=== PATIENT | male | born 1970 | race American Indian/Alaskan Native ===

== ENCOUNTER 2020-06-04 20:49 | Emergency (ER) | payer OTHER ==
[2020-06-04 21:00] VITALS: BP 136/86
--- NOTE | 2020-06-04 21:00 | Event Note ---
ED Screening Note Date of service: 06/04/20 Time: 20:59 ED Screening Note: c/o right wrist pain denies injury hx of gout This initial assessment/diagnostic orders/clinical plan/treatment(s) is/are subject to change based on patients health status, clinical progression and re- assessment by fellow clinical providers in the ED. Further treatment and workup at subsequent clinical providers discretion. Patient/guardian urged not to elope from the ED as their condition may be serious if not clinically assessed and managed. Initial orders include: xr
[2020-06-04] MEDS ORDERED: traMADol 50 MG TAB PO ONE (21:26)
[2020-06-04] MEDS ORDERED: predniSONE 20 MG TAB PO ONE (21:28)
--- NOTE | 2020-06-04 21:33 | Emergency Department Report ---
Upper Extremity - HPI Chief Complaint: Extremity Injury, Upper Stated Complaint: PAIN TO WRIST Time Seen by Provider: 06/04/20 20:58 Upper Extremity: Right Wrist (ulnar wrist pain x 2 days hx gout ) Occurred When: 2 Days Severity: moderate Symptoms: Yes Pain with Movement, No Deformity, No Limited Range of Movement, No Numbness, No Weakness, No Swelling, No Bruising/Ecchymosis, No Laceration or Abrasion ED Review of Systems ROS: Stated complaint: PAIN TO WRIST Other details as noted in HPI Constitutional: denies: chills, fever Eyes: denies: eye pain, eye discharge, vision change ENT: denies: ear pain, throat pain Respiratory: denies: cough, shortness of breath, wheezing Cardiovascular: denies: chest pain, palpitations Endocrine: no symptoms reported Gastrointestinal: denies: abdominal pain, nausea, diarrhea Genitourinary: denies: urgency, dysuria Musculoskeletal: arthralgia Skin: denies: rash, lesions Neurological: denies: headache, weakness, paresthesias Psychiatric: denies: anxiety, depression Hematological/Lymphatic: denies: easy bleeding, easy bruising ED Past Medical Hx - Past Medical History Previous Medical History?: Yes Hx Hypertension: Yes Additional medical history: Gout - Surgical History Past Surgical History?: Yes Additional Surgical History: Hernia - Social History Smoking Status: Never Smoker Substance Use Type: None - Medications Home Medications: Home Medications Medication Instructions Recorded Confirmed Last Taken Type Naproxen 500 mg PO BID PRN #30 tablet 06/04/20 Unknown Rx predniSONE [Deltasone] 40 mg PO QDAY 5 Days #10 tab 06/04/20 Unknown Rx Upper Extremity Exam - Exam General: Vital signs noted. No distress. Alert and acting appropriately. Head and Torso: No HEENT Abnormality, No Neck Tenderness, No Chest/Lungs Abnormality, No Abdominal Tenderness, No Back Tenderness Shoulder Exam: Yes Normal Range of Motion in Shoulder, No Shoulder Tenderness, No Clavicle Tenderness, No Shoulder Deformity, No AC Joint Tenderness Arm Exam: No Arm/Humerus Tenderness, No Arm Deformity Elbow: No Elbow Tenderness, No Normal Range of Motion in Elbow, No Elbow Deformity Forearm: No Forearm Tenderness, No Forearm Deformity, No Pain with Pronation, No Pain with Supination Wrist: Yes Wrist Tenderness, Yes Normal ROM in Wrist, No Wrist Deformity, No Snuffbox Tenderness, No Pain with Axial Thumb Compression Hand: Yes Normal ROM in Digit(s), No Hand Tenderness, No Hand Deformity, No Digit Tenderness, No Digit(s) Deformity, No Tendon Dysfunction CMS Exam: Yes Normal Distal Pulses, Yes Normal Capillary Refill, Yes Normal Distal Sensation, No Broken Skin ED Course Vital Signs 06/04/20 20:57 Temperature 98.7 F Pulse Rate 84 Respiratory 18 Rate Blood Pressure 136/86 O2 Sat by Pulse 97 Oximetry ED Medical Decision Making - Radiology Data Radiology results: image reviewed no fracture - Medical Decision Making xray neg for fracture, rom intact and unrestricted ,research instructor equal bilat, distal pulses +2, there is no swelling, right ulnar wrist pain is reproducible to deep palpation, mild pain with pronation and supination, 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 plan, nsaids, prednisone, wrist splint , rice therapy follow up with primary care doctor in 2- 3 days. pt verbalized agreement with discharge plan. Critical care attestation.: If time is entered above; I have spent that time in minutes in the direct care of this critically ill patient, excluding procedure time. ED Disposition Clinical Impression: Right wrist sprain Qualifiers: Encounter type: initial encounter Qualified Code(s): S63.501A - Unspecified sprain of right wrist, initial encounter Disposition: TO HOME OR SELFCARE Is pt being admited?: No Does the pt Need Aspirin: No Condition: Stable Instructions: Elastic Bandage and RICE Therapy, Wrist Sprain, Adult Prescriptions: predniSONE [Deltasone] 40 mg PO QDAY 5 Days #10 tab Naproxen 500 mg PO BID PRN #30 tablet PRN Reason: pain Referrals: YASIR JACOBS MD [Staff Physician] - 3-5 Days Forms: Work/School Release Form(ED) Time of Disposition: 21:47
--- NOTE | 2020-06-04 22:30 | XRay Report ---
RIGHT WRIST 3 VIEW(S) INDICATION / CLINICAL INFORMATION: pain, no injury COMPARISON: None available. FINDINGS: BONES / JOINT(S): No acute fracture or subluxation. No significant arthritis. SOFT TISSUES: No significant abnormality. ADDITIONAL FINDINGS: None. Signer Name: Marino Swenson MD Signed: 06/04/2020 10:26 PM Workstation Name: [email or web address]
== END 2020-06-04 21:50 | disposition home or self-care (01) ==
LOC: ED 20:49
DX: S63.501A Unspecified sprain of right wrist, initial encounter (principal); X58.XXXA Exposure to other specified factors, initial encounter; Y93.89 Activity, other specified; Y92.89 Other specified places as the place of occurrence of the external cause; Y99.8 Other external cause status
CPT/HCPCS: 29125; 73110; 99283; J7512

== ENCOUNTER 2021-06-16 14:23 | Emergency (ER) | payer OTHER ==
[2021-06-16 14:33] VITALS: BP 143/78
--- NOTE | 2021-06-16 15:37 | Emergency Department Report ---
ED General Adult HPI - General Chief complaint: Medical Clearance Stated complaint: BLOOD EXPOSURE Time Seen by Provider: 06/16/21 15:00 Source: patient Mode of arrival: Ambulatory Limitations: No Limitations - History of Present Illness Initial comments: 50-year-old -[place] male patient presents with complaints of exposure to bodily fluid yesterday at work. 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 He states the saliva and landed on his right arm and on his head. He denies any saliva getting into his mouth, nose, or eyes. He states he is feeling well and denies any other complaints. Patient states he was instructed to come to the ED by [facility] for blood work. Severity scale (0 -10): 2 - Related Data Previous Rx's Medication Instructions Recorded Last Taken Type Naproxen 500 mg PO BID PRN #30 tablet 06/04/20 Unknown Rx predniSONE [Deltasone] 40 mg PO QDAY 5 Days #10 tab 06/04/20 Unknown Rx Allergies Allergy/AdvReac Type Severity Reaction Status Date / Time No Known Allergies Allergy Unverified 06/04/20 21:02 ED Review of Systems ROS: Stated complaint: BLOOD EXPOSURE Other details as noted in HPI Constitutional: denies: chills, fever Skin: denies: change in color Hematological/Lymphatic: denies: swollen glands ED Past Medical Hx - Past Medical History Previous Medical History?: No Hx Hypertension: Yes Additional medical history: Gout - Surgical History Past Surgical History?: No Additional Surgical History: Hernia - Social History Smoking Status: Never Smoker Substance Use Type: None - Medications Home Medications: Home Medications Medication Instructions Recorded Confirmed Last Taken Type Naproxen 500 mg PO BID PRN #30 tablet 06/04/20 Unknown Rx predniSONE [Deltasone] 40 mg PO QDAY 5 Days #10 tab 06/04/20 Unknown Rx ED Physical Exam - General Limitations: No Limitations General appearance: alert, in no apparent distress, obese - Head Head exam: Present: atraumatic, normocephalic - Eye Eye exam: Present: normal appearance - ENT ENT exam: Present: normal exam - Neck Neck exam: Present: normal inspection - Respiratory Respiratory exam: Absent: respiratory distress - Cardiovascular Cardiovascular Exam: Present: regular rate - Neurological Exam Neurological exam: Present: alert, oriented X3 - Psychiatric Psychiatric exam: Present: normal affect, normal mood - Skin Skin exam: Present: warm, dry, intact, normal color. Absent: rash ED Course Vital Signs 06/16/21 14:23 Temperature 98.9 F Pulse Rate 70 Respiratory 18 Rate Blood Pressure 143/78 [Left] O2 Sat by Pulse 99 Oximetry ED Medical Decision Making - Medical Decision Making 50-year-old -[place] male patient presents with complaints of exposure to bodily fluid yesterday at work. 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 He states the saliva and landed on his right arm and on his head. He denies any saliva getting into his mouth, nose, or eyes. He states he is feeling well and denies any other complaints. Patient states he was instructed to come to the ED by employee health for blood work. Offered patient postexposure blood work, he declines. He is otherwise well- appearing, his vitals are within normal limits, he is stable for discharge home. Patient to follow-up with [facility] for further instructions within the next 24 to 48 hours Critical care attestation.: If time is entered above; I have spent that time in minutes in the direct care of this critically ill patient, excluding procedure time. ED Disposition Clinical Impression: Exposure to body fluid Disposition: 01 HOME / SELF CARE / HOMELESS Is pt being admited?: No Condition: Stable Instructions: Body Fluid Exposure Information Referrals: MELISSA WILL [Other] - 3-5 Days
== END 2021-06-16 15:40 | disposition home or self-care (01) ==
LOC: ED 14:23
DX: Z77.21 Contact with and (suspected) exposure to potentially hazardous body fluids (principal); I10 Essential (primary) hypertension; Z79.899 Other long term (current) drug therapy
CPT/HCPCS: 99281

== ENCOUNTER 2021-06-24 19:13 | Emergency (ER) | payer OTHER ==
[2021-06-24 19:27] VITALS: BP 143/76
[2021-06-24] MEDS ORDERED: methylPREDNISolone Sod Succinate 125 MG/2 ML INJ IM ONE (19:34)
[2021-06-24] MEDS ORDERED: COLCHICINE 0.6 MG TAB PO ONE (19:34)
[2021-06-24] MEDS ORDERED: KETOROLAC 60 MG/2 ML INJ IM ONE (19:34)
--- NOTE | 2021-06-24 19:39 | Emergency Department Report ---
ED Extremity Problem HPI - General Chief complaint: Extremity Injury, Lower Stated complaint: Gout. Foot Pain Source: patient Mode of arrival: Ambulatory Limitations: No Limitations - History of Present Illness Initial comments: Patient is a 50-year-old -[place] male with a history of hypertension, chronic gouty arthropathy and morbid obesity presents to the ED with complaint of acute exacerbation of his chronic left foot and ankle pain suspected to be due to acute gouty flare pain for the last 2 days. Patient states that he has previously been treated for the same and that the symptoms are similar to what he has previously experienced. Patient denies fall, traumatic injury, nausea and vomiting, fever, chills, low back pain, hip pain, chest pain or shortness of breath, numbness and tingling or weakness of lower extremities bilaterally. MD Complaint: extremity pain (left foot and ankle joint pain), extremity swelling (left foot and ankle pain, and swelling), joint swelling (left foot and ankle), joint paint (left foot and ankle) -: Sudden, days(s) (2) Location: left, lower extremity (ankle and foot) -: Yes arthralgia (left foot and ankle) Severity scale (0 -10): 7 Quality: aching, sharp Consistency: constant Improves with: nothing Worsens with: weight bearing, walking, palpation Associated Symptoms: denies other symptoms, arthralgias (left foot and ankle). denies: chest pain, shortness of breath, fever, myalgias, rash - Related Data Previous Rx's Medication Instructions Recorded Last Taken Type Naproxen 500 mg PO BID PRN #30 tablet 06/04/20 Unknown Rx predniSONE [Deltasone] 40 mg PO QDAY 5 Days #10 tab 06/04/20 Unknown Rx Colchicine 0.6 mg PO DAILY #30 tablet 06/24/21 Unknown Rx Indomethacin 50 mg PO Q8H PRN #45 capsule 06/24/21 Unknown Rx predniSONE [Deltasone] 60 mg PO DAILY #15 tablet 06/24/21 Unknown Rx Allergies Allergy/AdvReac Type Severity Reaction Status Date / Time No Known Allergies Allergy Unverified 06/04/20 21:02 ED Review of Systems ROS: Stated complaint: Gout. Foot Pain Other details as noted in HPI Constitutional: denies: chills, fever Eyes: denies: eye pain, eye discharge, vision change ENT: denies: ear pain, throat pain Respiratory: denies: cough, shortness of breath, wheezing Cardiovascular: denies: chest pain, palpitations Endocrine: no symptoms reported Gastrointestinal: denies: abdominal pain, nausea, diarrhea Genitourinary: denies: urgency, dysuria Musculoskeletal: joint swelling (mild left ankle and foot swelling), arthralgia (left ankle and foot pain). denies: back pain Skin: denies: rash, lesions Neurological: denies: headache, weakness, paresthesias Psychiatric: denies: anxiety, depression Hematological/Lymphatic: denies: easy bleeding, easy bruising ED Past Medical Hx - Past Medical History Previous Medical History?: Yes Hx Hypertension: Yes Additional medical history: Gout - Surgical History Past Surgical History?: Yes Additional Surgical History: Hernia - Social History Smoking Status: Never Smoker Substance Use Type: None - Medications Home Medications: Home Medications Medication Instructions Recorded Confirmed Last Taken Type Naproxen 500 mg PO BID PRN #30 tablet 06/04/20 Unknown Rx predniSONE [Deltasone] 40 mg PO QDAY 5 Days #10 tab 06/04/20 Unknown Rx Colchicine 0.6 mg PO DAILY #30 tablet 06/24/21 Unknown Rx Indomethacin 50 mg PO Q8H PRN #45 capsule 06/24/21 Unknown Rx predniSONE [Deltasone] 60 mg PO DAILY #15 tablet 06/24/21 Unknown Rx ED Physical Exam - General Limitations: No Limitations General appearance: alert, in no apparent distress - Head Head exam: Present: atraumatic, normocephalic, normal inspection - Eye Eye exam: Present: normal appearance, PERRL, EOMI Pupils: Present: normal accommodation - ENT ENT exam: Present: normal exam, normal orophraynx, mucous membranes moist, TM's normal bilaterally, normal external ear exam - Neck Neck exam: Present: normal inspection, full ROM. Absent: tenderness - Respiratory Respiratory exam: Present: normal lung sounds bilaterally. Absent: respiratory distress, wheezes, rales, stridor, chest wall tenderness, accessory muscle use, decreased breath sounds - Cardiovascular Cardiovascular Exam: Present: regular rate, normal rhythm, normal heart sounds. Absent: systolic murmur, diastolic murmur, rubs, gallop - GI/Abdominal GI/Abdominal exam: Present: soft, normal bowel sounds. Absent: tenderness, guarding, hyperactive bowel sounds, hypoactive bowel sounds, organomegaly - Extremities Exam Extremities exam: Present: normal inspection, full ROM, tenderness (Palpable left ankle and foot tenderness), normal capillary refill, joint swelling (Mild left foot and ankle swelling). Absent: pedal edema, calf tenderness - Back Exam Back exam: Present: normal inspection, full ROM. Absent: tenderness, CVA tenderness (R), muscle spasm, paraspinal tenderness, vertebral tenderness - Neurological Exam Neurological exam: Present: alert, oriented X3, CN II-XII intact, normal gait, reflexes normal - Psychiatric Psychiatric exam: Present: normal affect, normal mood - Skin Skin exam: Present: warm, dry, intact, normal color. Absent: rash ED Course Vital Signs 06/24/21 19:17 Temperature 98.6 F Pulse Rate 71 Respiratory 16 Rate Blood Pressure 143/76 O2 Sat by Pulse 96 Oximetry ED Medical Decision Making - Medical Decision Making This is a 50-year-old -[place] male with a history of hypertension, chronic gouty arthropathy and morbid obesity presents to the ED with complaint of acute exacerbation of his chronic left foot and ankle pain suspected to be due to acute gouty flare pain for the last 2 days. Patient states that he has previously been treated for the same and that the symptoms are similar to what he has previously experienced. In the ED, patient is alert and oriented x3 and is not in distress. Patient was treated for pain in the ED and discharged home on pain medications and oral steroids. Patient was advised to follow-up with his primary care physician in 7 to 10 days for reevaluation or return to the ED immediately if symptoms get worse. - Differential Diagnosis Gout; osteoarthritis; muscle strain; tendinitis Critical care attestation.: If time is entered above; I have spent that time in minutes in the direct care of this critically ill patient, excluding procedure time. ED Disposition Clinical Impression: Chronic gouty arthropathy, Chronic pain in left foot Pain in left ankle Qualifiers: Chronicity: chronic Qualified Code(s): M25.572 - Pain in left ankle and joints of left foot; G89.29 - Other chronic pain Disposition: 01 HOME / SELF CARE / HOMELESS Is pt being admited?: No Does the pt Need Aspirin: No Condition: Stable Instructions: Chronic Pain, Adult, Joint Pain, Afpo-dy-Onze, Low-Purine Eating Plan Additional Instructions: Your symptoms are due to your chronic gouty arthropathy. Therefore take medications as advised, drink plenty of fluids and follow-up with your primary care physician in 7 to 10 days for reevaluation. Return to the ED immediately if symptoms get worse. Prescriptions: Colchicine 0.6 mg PO DAILY #30 tablet predniSONE [Deltasone] 60 mg PO DAILY #15 tablet Indomethacin 50 mg PO Q8H PRN #45 capsule PRN Reason: Pain , Severe (7-10) Referrals: [facility] [Provider Group] - 7-10 days Time of Disposition: 19:37 Print Language: MALTESE
== END 2021-06-24 20:46 | disposition home or self-care (01) ==
LOC: ED 19:13
DX: M1A.9XX0 Chronic gout, unspecified, without tophus (tophi) (principal); M79.672 Pain in left foot; M25.572 Pain in left ankle and joints of left foot; I10 Essential (primary) hypertension; Z98.890 Other specified postprocedural states; E66.01 Morbid (severe) obesity due to excess calories
CPT/HCPCS: 96372; 99282; J1885; J2930